=== PATIENT | male | born 1965 | race African-American/Black ===

== ENCOUNTER 2017-01-17 14:19 | Emergency (ER) | payer MEDICAID, OTHER ==
[~2017-01-17] VITALS: Ht 167.6 cm; Wt 99.8 kg
--- NOTE | 2017-01-17 14:57 | Emergency Room Report ---
History of Present Illness General Chief Complaint: General Complaint Source: Patient Present Illness HPI 51 y/o male c/o right eye pain x 2.5 weeks. States that his assoc sxs include watery discharge from right eye, hazy vision from right eye, states he feels he cannot see from right eye, right eye pain, tenderness on superior aspect if right eye / upper eye lid, photophobia and red eye. States he went to the [facility] that he had been to in the past but told him to his PCP to get a referral to get an appointment. Patient had an appt with GARMENT LINER at PCP office for routine Px. States that he was given polytrim eye drops but has used it without improvement. Denies very waking up with his eyes glued shut and denies any mucoid discharge or crusting on eye lids. There are no provoking or relieving factors. 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 States his baseline for right eye is normal vision w/o glasses. Denies any trauma, foreign body, use of contact lenses, and headache Allergies: Coded Allergies: No Known Allergies (Unverified , 01/17/17) Patient History Past Medical History: see triage record Past Surgical History: other Pertinent Family History: none Reviewed Nursing Documentation: PMH: Agreed, PSxH: Agreed Nursing Documentation-PMH Past Medical History: No History, Except For Hx Neurological Problems: Yes - legally blind Review of Systems All Other Systems: negative except mentioned in HPI Physical Exam Vital Signs Date Time Temp Pulse Resp B/P Pulse Ox O2 Delivery O2 Flow Rate FiO2 01/17/17 14:37 98.1 98 19 99/62 95 Room Air Sp02 EP Interpretation: reviewed, normal General Appearance: no apparent distress, alert, GCS 15, non-toxic Head: normocephalic, atraumatic Eyes: right eye Fundiscopic - normal, right eye Scleral Injection, right eye abnormal pupil - misshapened pupid, reactive, bilateral eye EOMI, bilateral eye PERRL ENT: hearing grossly normal, no angioedema, normal voice Neck: full range of motion, no carotid bruits, supple/symm/no masses Respiratory: lungs clear, normal breath sounds, speaking full sentences Cardiovascular #1: regular rate, rhythm, no edema Cardiovascular #2: 2+ carotid (R), 2+ carotid (L) Neurologic: alert, oriented x3, responsive, motor strength/tone normal, sensory intact, speech normal Psychiatric: judgement/insight normal, memory normal, mood/affect normal, no suicidal/homicidal ideation Skin: normal color, no rash, warm/dry, well hydrated Medical Decision Making PA Attestation Dr. Shoemaker my supervising physician with whom patient management has been discussed with. Diagnostic Impression: Primary Impression: Neovascular glaucoma of right eye Qualified Codes: H40.51X0 - Glaucoma secondary to other eye disorders, right eye, stage unspecified Additional Impression: Prediabetes ER Course Pt. presents to the ED c/o Right eye pain and decreased vision Ddx considered but are not limited to Glaucoma, Retinal detachment, iritis, conjunctivitis. Vital signs: are WNL, pt. is afebrile H&PE are most consistent with Acute on chronic glaucoma due to neovascularization & prediabetes ORDERS: Tetracaine, EKG, Timolol, Acetazolamide 500mg IV, BMP, A1C ED INTERVENTIONS: Patient was given 3 drops of tetracaine in right eye and had no reduction of pain. The tonopen had first set of measurements that had IOP of 51. The tonopen was used to verify IOP and came with avg measurement of 43.Dr. Shoemaker was alerted and verified IOP at 41. Another 2 drops of tetracaine was given by Dr. Shoemaker as patient's pain had no improved at all and then patient was then laid supine and informed to stay supine. Dr. Shoemaker placed a call in to Dr. Paul Thomason (Ophthalmology) who advised to give timolol and acetazolamide. An EKG was taken that shows NSR w/o any BBB or hear blocks. DISCHARGE: At this time pt. is stable for d/c to home. Will provide printed patient care instructions, and any necessary prescriptions. Care plan and follow up instructions have been discussed with the patient prior to discharge. Laboratory Tests Test 01/17/17 16:30 Sodium Level 139 mEQ/L (135-145) Potassium Level 4.0 mEQ/L (3.4-4.9) Chloride Level 101 mEQ/L (98-107) Carbon Dioxide Level 24 mEQ/L (20-30) Anion Gap 14 (5-15) Blood Urea Nitrogen 13 mg/dL (7-23) Creatinine 0.9 mg/dL (0.7-1.2) Estimate Glomerular Filtration Rate > 60 mL/min (>60) Glucose Level 101 mg/dL (74-106) Hemoglobin A1c 5.9 % (< 6.0) Calcium Level 9.1 mg/dL (8.6-10.2) EKG Diagnostic Results Rate: normal Rhythm: NSR ST Segments: no acute changes Last Vital Signs Date Time Temp Pulse Resp B/P Pulse Ox O2 Delivery O2 Flow Rate FiO2 01/17/17 18:01 98.1 91 19 105/63 98 Room Air Status: improved Disposition: HOME, SELF-CARE Condition: Stable KODI BOONE January 17, 2017 14:57
[2017-01-17] MEDS ORDERED: Tetracaine 0.5% Opth Soln ONE (15:00)
[2017-01-17] MEDS ORDERED: Tetrahydrozoline 0.05% Opth 15ml BOTH EYES ONE (15:00)
[2017-01-17] MEDS ORDERED: Tetracaine 0.5% Opth Soln RIGHT EYE ONE (15:00)
[2017-01-17 15:02] VITALS: BP 99/62
[2017-01-17] MEDS ORDERED: Pilocarpine 2% Opth Soln RIGHT EYE ONE (15:30)
[2017-01-17] MEDS ORDERED: acetaZOLAMIDE 500mg Inj IVP ONE (15:30)
[2017-01-17] MEDS ORDERED: Brimonidine 0.2% Opth Sol RIGHT EYE ONE (16:15)
--- NOTE | 2017-01-17 16:33 | Consultation ---
Consult Note Consult Note Ophthalmology/Ophthalmic Plastic Surgery Consultation Referring Physician: Reji Lyn MD Reason for Consultation: elevated eye pressure History of the present illness: the patient is a 51-year-old man with an approximately 2 week history of blurred vision, tearing and pain in his right eye. He was started on antibiotic drops by his primary doctor. His symptoms worsened prompting him to present to he ER. He has a remote hx of trauma to the left eye which resulted in glaucoma and severe vision loss. Noted by ER staff to have elevated IOP >40 mmHg OD. Past medical Hx: left eye injury Medications: none Allergies: NKDA Family History: no diabetes Social History: smokes 2 cigarettes per day, not currently working due to disability Review of Systems: General: no fever HEENT: see HPI Cardiac: no chest pain Respiratory: no shortness of breath GI: no nausea : no urinary complaints MS: no joint pains Derm: no rashes Psychiatric: no depression Neurologic: no numbness, no weakness Heme: no easy bruising Examination: Mini-mental status examination revealed the patient to be awake, alert and oriented to person, place and time with appropriate mood and affect. Visual Acuity at near without correction: OD: 20/400 OS: counting fingers at 1 foot Intraocular pressure (after timolol and diamox): 4:10pm OD: 29 mmHg OS: 24 mmHg rechecked after additional topical drops OD: 25 mmHg Pupils: OD non-reactive, round; OS absent Extra-ocular motility: full OU Confrontational visual kirby: full to finger counting OU Anterior Segments: External: normal lids and orbits OU Conjunctivae: 2+ injection OD; white and quiet OS Cornea: Clear OU Anterior Chambers: Deep and Quiet OU Irides: rubeosis OD; post traumatic iris, only temporal sliver present Lenses: nuclear sclerosis OD; aphakic OS Dilated Fundus Examination (tropicamide OD, poor dilation): Vitreous: limited view OD due to miosis; Clear OS Optic Nerves: NV vs hemorrhage on disc OD; Sharp OS Vessels: Normal course and caliber OD (limited view); Normal course and caliber OS Maculae: flat OD (limited view); flat OS Periphery: multiple intraretinal hemorrhages OD (limited view); peripheral scarring OS Studies: finger stick glucose 101 Assessment/Plan Impression: 1. Neovascular glaucoma OD 2. Aphakia OS Assessment and Plan: Mr. Ryan is a 51-year-old man with neovascular glaucoma in the right eye. Possible causes include diabetic retinopathy, retinal vascular occlusion and other causes of ischemia. Blood work in the ER showed normal glucose levels. The view of the retina is limited due to miosis. Fortunately the intraocular pressure responded promptly to aggressive medical treatment in the ER including IV diamox, topical timolol, brimonidine, and dorzolamide. The patient also has a history of a remote injury to the left eye leaving him with very limited vision. Because of the serious nature of his situation urgent ophthalmology follow up was advised. This will be arranged by the ER and the patient's health plan. The patient will also be continued on timolol, dorzolamide, and brimonidine OD BID for now. The condition including the risk of permanent vision loss and need for close follow up and treatment were discussed with the patient and the ER staff. The patient's questions were answered. Thank you very much for this consultation Paul Thomason M.D. [phone] PAUL THOMASON January 17, 2017 16:33
[2017-01-17 17:01] LABS: ANION GAP 14 (5-15); CALCIUM 9.1 mg/dL (8.6-10.2); CARBON DIOXIDE 24 mEQ/L (20-30); CHLORIDE 101 mEQ/L (98-107); CREATININE 0.9 mg/dL (0.7-1.2); GLOMERULAR FILTRATION RATE > 60 mL/min (>60); HEMOLYSIS 20; SODIUM 139 mEQ/L (135-145)
[2017-01-17 17:59] VITALS: BP 105/63
[2017-01-17] MEDS ORDERED: Dorzolamide 2% Btl RIGHT EYE ONE (18:00)
[2017-01-17] MEDS ORDERED: Timolol 0.5% Op Soln 2.5ml RIGHT EYE ONE (18:00)
[2017-01-17] MEDS ORDERED: Pred Forte 1% Opth Susp 1ml RIGHT EYE ONE (18:00)
[2017-01-17 18:01] VITALS: BP 105/63
--- NOTE | 2017-01-19 19:53 | Cardiology Report ---
APPROVED REPORT EKG Measurement Heart [id number] Normal sinus rhythm Left axis deviation Abnormal ECG
== END 2017-01-17 18:04 | disposition home or self-care (01) ==
LOC: EMR 14:59
DX: H40.89 Other specified glaucoma (principal); H27.01 Aphakia, right eye; R73.03 Prediabetes; H54.8 Legal blindness, as defined in USA
CPT/HCPCS: 36415; 80048; 82962; 83036; 93005; 99284; J1120

== ENCOUNTER 2018-07-08 20:55 | Emergency (ER) | payer OTHER ==
[~2018-07-08] VITALS: Ht 167.6 cm; Wt 86.2 kg
[2018-07-08 21:39] VITALS: BP 103/65
--- NOTE | 2018-07-08 21:54 | Emergency Room Report ---
History of Present Illness General Chief Complaint: Pain Source: Patient Present Illness HPI Patient presents with left hip pain. This been going on for months but then became severe the last 2-3 days. He's been taking Motrin and Tylenol. He denies any fevers, chills, nausea, vomiting, diarrhea. There was no trauma. The pain is aching and worse when his palpated. He uses a cane but also came in with a wheelchair. He states the pain has been present for several months, but worse for 3 days. No prior x-rays. Does not know if he has gout. Pain is rated 10/10. No fevers, cough, dyspnea, chest pain. No dysuria. No rashes. No depression. Blind from glaucoma/cataracts. Diabetes. States good control. Here with sig other. 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 Reviewed Nursing Documentation: PMH: Agreed; PSxH: Agreed Nursing Documentation-PMH Hx Diabetes: Yes - dm Hx Neurological Problems: Yes - cataract Review of Systems All Other Systems: negative except mentioned in HPI Physical Exam Vital Signs Date Time Temp Pulse Resp B/P (MAP) Pulse Ox O2 Delivery O2 Flow Rate FiO2 07/08/18 21:33 98.4 87 16 100/62 95 Room Air Sp02 EP Interpretation: reviewed, normal General Appearance: well appearing, no apparent distress, GCS 15 Head: normocephalic Eyes: bilateral eye other - cataracts ENT: moist mucus membranes Neck: supple Respiratory: lungs clear, normal breath sounds Cardiovascular #1: regular rate, rhythm Cardiovascular #2: 2+ radial (R) Gastrointestinal: normal inspection, normal bowel sounds, non tender, no mass, non-distended Genitourinary: no CVA tenderness Musculoskeletal: back normal, no calf tenderness, tender - L hip but not to palpation. PROM good with some minimal tenderness, no deformity or crepetance Neurologic: alert, oriented x3, motor strength/tone normal, DTRs symmetric, sensory intact, cerebellar normal, speech normal Psychiatric: mood/affect normal Skin: normal inspection, warm/dry Medical Decision Making Diagnostic Impression: Primary Impression: Osteoarthritis Qualified Codes: M16.12 - Unilateral primary osteoarthritis, left hip ER Course Patient with non-traumatic L hip pain. DDx: gout, osteoarthritis, bursitis, tendinitis amongst others. Evaluation with labs and xrays. Treatment with gentle hydration and toradol. Labs with normal CBC, CMP, ESR. Uric acid normal. UA normal. Xrays with calcification near greater trochanter. Min djd. Improved after treatment and now ambulatory. Patient stable for outpatient observation and treatment. Other X-Ray Diagnostic Results Other X-Ray Diagnostic Results #1: X-Ray ordered: R hip # of Views/Limited Vs Complete: 2 View Indication: Pain Interpretation: no dislocation, no soft tissue swelling, no fractures, other - DJD - calcification near greater trochanter Impression: Other Electronically Signed by: Gerald West MD Other X-Ray Diagnostic Results #2: X-Ray ordered: pelvis # of Views/Limited Vs Complete: 1 View Indication: Pain EP Interpretation: Yes Interpretation: no dislocation, no soft tissue swelling, no fractures, other - see hip Impression: Other Electronically Signed by: Gerald West MD Last Vital Signs Date Time Temp Pulse Resp B/P (MAP) Pulse Ox O2 Delivery O2 Flow Rate FiO2 07/09/18 03:04 98.4 81 17 103/65 95 Room Air Status: improved Disposition: HOME, SELF-CARE Condition: Improved Scripts Acetaminophen (Tylenol) 325 Mg Tablet 650 MG ORAL Q6H PRN for Prn Pain/Headache/Temp > 101, #20 TAB 0 Refills Prov: Gerald West MD 07/09/18 Naproxen* (NAPROXEN*) 375 Mg Tablet.dr 375 MG ORAL TID PRN for For Pain, #30 TAB 1 Refill Prov: Gerald West MD 07/09/18 Tramadol Hcl* (ULTRAM*) 50 Mg Tablet 50 MG ORAL Q6H PRN for For Pain, #6 TAB 0 Refills Prov: Gerald West MD 07/09/18 Gerald West MD Jul 08, 2018 21:54
[2018-07-08] MEDS ORDERED: Ketorolac 30mg Inj IV ONE (22:00)
[2018-07-08 22:28] LABS: BASOPHILS % (AUTO) 1.8 % (0.0-2.0); EOSINOPHILS % (AUTO) 0.9 % (0.0-3.0); HEMATOCRIT 45.2 % (42.0-52.0); HEMOGLOBIN 14.4 G/DL (14.2-18.0); MEAN CORPUSCULAR VOLUME 79 FL (80-99); MONOCYTES % (AUTO) 7.3 % (1.0-10.0); PLATELET COUNT 213 K/UL (150-450); RED BLOOD COUNT 5.75 M/UL (4.70-6.10); WHITE BLOOD COUNT 11.5 K/UL (4.8-10.8)
[2018-07-08 22:42] LABS: ANION GAP 7 mmol/L (5-15); BLOOD UREA NITROGEN 17 mg/dL (7-18); CARBON DIOXIDE 29 MMOL/L (21-32); CHLORIDE 103 MMOL/L (98-107); CREATININE 1.2 MG/DL (0.55-1.30); POTASSIUM 4.2 MMOL/L (3.5-5.1); SODIUM 139 MMOL/L (136-145)
--- NOTE | 2018-07-08 22:44 | Diagnostic Imaging Report ---
EXAM: XR Left Hip, 2 or 3 Views CLINICAL HISTORY: PAIN TECHNIQUE: Two or three views of the left hip. COMPARISON: No relevant prior studies available. FINDINGS: Bones/joints: No acute displaced fracture or dislocation. Soft tissues: Unremarkable. IMPRESSION: No acute displaced fracture or dislocation.
--- NOTE | 2018-07-08 22:44 | Diagnostic Imaging Report ---
EXAM: XR Pelvis, 1 or 2 Views CLINICAL HISTORY: PAIN TECHNIQUE: Frontal view of the pelvis. COMPARISON: No relevant prior studies available. FINDINGS: Bones/joints: No acute displaced fracture or dislocation. Soft tissues: Unremarkable. IMPRESSION: No acute displaced fracture or dislocation.
[2018-07-08 22:45] LABS: ALANINE AMINOTRANSFERASE 28 U/L (12-78); ALBUMIN 3.6 G/DL (3.4-5.0); ALBUMIN/GLOBULIN RATIO 0.8 (1.0-2.7); ALKALINE PHOSPHATASE 74 U/L (46-116); ASPARTATE AMINO TRANSFERASE 15 U/L (15-37); BILIRUBIN,TOTAL 0.2 MG/DL (0.2-1.0)
[2018-07-09 00:11] LABS: APPEARANCE,URINE CLEAR; BILIRUBIN, URINE NEGATIVE (NEGATIVE); COLOR,URINE PALE YELLOW; GLUCOSE, URINE (UA) NEGATIVE (NEGATIVE); KETONES,URINE NEGATIVE (NEGATIVE); LEUKOCYTE ESTERASE ,URINE NEGATIVE (NEGATIVE); NITRITE,URINE NEGATIVE (NEGATIVE); PH,URINE 8 (4.5-8.0); PROTEIN,URINE 1+ (NEGATIVE); UROBILINOGEN,URINE NORMAL MG/DL (0.0-1.0)
[2018-07-09] MEDS ORDERED: NAPROXEN375 M2 ORAL (02:53)
[2018-07-09] MEDS ORDERED: TRAMADOL HCL50 MG ORAL (02:53)
[2018-07-09] MEDS ORDERED: TYLENOL325 MG ORAL (02:53)
[2018-07-09 03:04] VITALS: BP 103/65
== END 2018-07-09 03:04 | disposition home or self-care (01) ==
LOC: EMR 21:51
DX: M16.12 Unilateral primary osteoarthritis, left hip (principal); E11.9 Type 2 diabetes mellitus without complications; H26.9 Unspecified cataract
CPT/HCPCS: 36415; 72170; 73502; 80053; 80307; 81003; 82962; 84550; 85025; 85610; 85651; 85730; 86140; 96361; 96374; 99284; J1885